=== PATIENT | female | born 1935 | race American Indian/Alaskan Native ===

== ENCOUNTER 2019-02-01 15:57 | Emergency (ER) | payer MEDICARE, OTHER ==
[2019-02-01 16:11] VITALS: BP 155/59
--- NOTE | 2019-02-01 17:04 | EDM.PDOC ---
ED HPI GENERAL MEDICAL PROBLEM - General Chief Complaint: Chest Pain Stated Complaint: [facility] Time Seen by Provider: 02/01/19 16:35 - History of Present Illness INITIAL COMMENTS - FREE TEXT/NARRATIVE: 83-year-old female brought into the emergency room by EMS with some chest complaints. Patient was seen at the [place] [facility] For routine follow-up and did mention she had some L arm discomfort after shoveling a bunch of snow over the last couple of days. They did an EKG and were concerned about this. And she was sent here she is pain-free when she gets here. The patient had her last cardiac stress test about 10 years ago. She exercises on a regular basis on a treadmill and tolerates this without to much difficulty. She takes a daily aspirin. Her EKG from the clinic was reviewed which shows of first-degree AV block no acute ischemia. She did receive nitroglycerin sublingually at the clinic which did help. Treatments [employer] [facility] [employer] [facility]: Reports: Aspirin, EKG, Nitroglycerin - Related Data Allergies Allergy/AdvReac Type Severity Reaction Status Date / Time penicillin Allergy Anaphylactic Verified 10/20/18 12:14 Shock [facility] Allergy Hives Uncoded 10/20/18 12:14 Home Meds: Home Meds Aspirin [Halfprin] 81 mg PO DAILY 07/27/15 [History] Cetirizine [ZyrTEC] 10 mg PO DAILY 02/01/19 [History] Clopidogrel [Plavix] 75 mg PO DAILY 02/01/19 [History] Gabapentin [Neurontin] 100 mg PO BID 02/01/19 [History] Glimepiride [Amaryl] 2 mg PO BID 02/01/19 [History] Glimepiride [Amaryl] 2 mg PO BID 02/01/19 [History] Ketorolac [Acular 0.5% Ophth Soln] 1 drop EYELF DAILY 02/01/19 [History] Levothyroxine [Synthroid] 50 mcg PO QAM 02/01/19 [History] Metoprolol Succinate [Toprol XL] 25 mg PO DAILY 02/01/19 [History] Ofloxacin [Floxin 0.3% Otic Soln] 1 drop EYELF QID 02/01/19 [History] Simvastatin 20 mg PO DAILY 02/01/19 [History] metFORMIN HCl [Metformin HCl] 500 mg PO QAM 02/01/19 [History] metFORMIN [Glucophage] 1,000 mg PO QPM 02/01/19 [History] prednisoLONE acetate [Pred Forte 1% Ophth Susp] 1 drop EYELF QID 02/01/19 [ History] Past Medical History HEENT History: Reports: Impaired Vision 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 Cardiovascular History: Reports: High Cholesterol, Hypertension, NH, Stents Respiratory History: Reports: Asthma Other Genitourinary History: cyst removed from ovary 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: Musculoskeletal History: Reports: Arthritis Endocrine/Metabolic History: Reports: Diabetes, Type II, Hypoparathyroidism, Osteoporosis - Past Surgical History HEENT Surgical History: Reports: Cataract Surgery GI Surgical History: Reports: Appendectomy Neurological Surgical History: Reports: Laminectomy Social & Family History - Tobacco Use Smoking Status *Q: Never Smoker - Caffeine Use Caffeine Use: Reports: Coffee - Recreational Drug Use Recreational Drug Use: No ED ROS GENERAL - Review of Systems Review Of Systems: See Below Constitutional: Reports: No Symptoms HEENT: Reports: No Symptoms Respiratory: Reports: No Symptoms Cardiovascular: Reports: Other (Left arm pain minimal chest pain intermittent chest tightness with the arm pain) Endocrine: Reports: No Symptoms GI/Abdominal: Reports: No Symptoms : Reports: No Symptoms Neurological: Reports: No Symptoms ED EXAM, GENERAL - Physical Exam Exam: See Below Exam Limited By: No Limitations General Appearance: Alert, No Apparent Distress, Other (Upon arrival to our emergency room she is pain-free) Head: Atraumatic, Normocephalic Neck: Normal Inspection, Supple, Non-Tender, Full Range of Motion Respiratory/Chest: No Respiratory Distress, Lungs Clear, Normal Breath Sounds, No Accessory Muscle Use, Chest Non-Tender Cardiovascular: Regular Rate, Rhythm, No Edema, No Murmur GI/Abdominal: Normal Bowel Sounds, Soft, Non-Tender Back Exam: Normal Inspection. No: CVA Tenderness (L), CVA Tenderness (R) Course - Vital Signs Last Recorded V/S: Last Vital Signs Temp 36.7 C 02/01/19 16:04 Pulse 56 L 02/01/19 16:04 Resp 13 02/01/19 16:04 BP 155/59 H 02/01/19 16:04 Pulse Ox 97 02/01/19 16:04 - Orders/Labs/Meds Orders: Active Orders 24 hr Category Date Time Status EKG Documentation Completion [RC] STAT Care 02/01/19 16:23 Active Labs: Laboratory Tests 02/01/19 02/01/19 02/01/19 Range/Units 16:41 16:41 16:41 WBC 9.81 (3.98-10.04) K/mm3 RBC 4.83 (3.98-5.22) M/mm3 Hgb 12.0 (11.2-15.7) gm/L Hct 38.1 (34.1-44.9) % MCV 78.9 L (79.4-94.8) fl MCH 24.8 L (25.6-32.2) pg MCHC 31.5 L (32.2-35.5) g/dl RDW Std Deviation 43.1 (36.4-46.3) fL Plt Count 292 (182-369) K/mm3 MPV 10.3 (9.4-12.3) fl Neutrophils % (Manual) 70 H (40-60) % Band Neutrophils % 1 (0-10) % Lymphocytes % (Manual) 27 (20-40) % Atypical Lymphs % 0 % Monocytes % (Manual) 0 L (2-10) % Eosinophils % (Manual) 2 (0.7-5.8) % Basophils % (Manual) 0 L (0.1-1.2) Platelet Estimate Adequate Poikilocytosis 1+ slight Ovalocytes 1+ slight RBC Morph Comment Not Reportable PT 10.5 (9.5-12.1) SECONDS INR 0.96 APTT 28 (24-31) SECONDS Sodium 142 (136-145) mEq/L Potassium 4.0 (3.5-5.1) mEq/L Chloride 103 (98-107) mEq/L Carbon Dioxide 28 (21-32) mEq/L Anion Gap 15.0 (5-15) BUN 13 (7-18) mg/dL Creatinine 0.8 (0.55-1.02) mg/dL Est Cr Clr Drug Dosing 42.14 mL/min Estimated GFR (MDRD) > 60 (>60) mL/min BUN/Creatinine Ratio 16.3 (14-18) Glucose 134 H (83-115) mg/dL Calcium 9.7 (8.5-10.1) mg/dL Total Bilirubin 0.3 (0.2-1.0) mg/dL AST 28 (15-37) U/L ALT 35 (14-59) U/L Alkaline Phosphatase 72 (46-116) U/L Troponin I < 0.017 (0.00-0.056) ng/mL Total Protein 7.2 (6.4-8.2) g/dl Albumin 3.6 (3.4-5.0) g/dl Globulin 3.6 gm/dL Albumin/Globulin Ratio 1.0 (1-2) 02/01/19 Range/Units 18:43 WBC (3.98-10.04) K/mm3 RBC (3.98-5.22) M/mm3 Hgb (11.2-15.7) gm/L Hct (34.1-44.9) % MCV (79.4-94.8) fl MCH (25.6-32.2) pg MCHC (32.2-35.5) g/dl RDW Std Deviation (36.4-46.3) fL Plt Count (182-369) K/mm3 MPV (9.4-12.3) fl Neutrophils % (Manual) (40-60) % Band Neutrophils % (0-10) % Lymphocytes % (Manual) (20-40) % Atypical Lymphs % % Monocytes % (Manual) (2-10) % Eosinophils % (Manual) (0.7-5.8) % Basophils % (Manual) (0.1-1.2) Platelet Estimate Poikilocytosis Ovalocytes RBC Morph Comment PT (9.5-12.1) SECONDS INR APTT (24-31) SECONDS Sodium (136-145) mEq/L Potassium (3.5-5.1) mEq/L Chloride (98-107) mEq/L Carbon Dioxide (21-32) mEq/L Anion Gap (5-15) BUN (7-18) mg/dL Creatinine (0.55-1.02) mg/dL Est Cr Clr Drug Dosing mL/min Estimated GFR (MDRD) (>60) mL/min BUN/Creatinine Ratio (14-18) Glucose (83-115) mg/dL Calcium (8.5-10.1) mg/dL Total Bilirubin (0.2-1.0) mg/dL AST (15-37) U/L ALT (14-59) U/L Alkaline Phosphatase (46-116) U/L Troponin I < 0.017 (0.00-0.056) ng/mL Total Protein (6.4-8.2) g/dl Albumin (3.4-5.0) g/dl Globulin gm/dL Albumin/Globulin Ratio (1-2) Departure - Departure Time of Disposition: 20:27 Disposition: Home, Self-Care 01 Clinical Impression: Chest pain Instructions: Nonspecific Chest Pain Referrals: PCP,None [Primary Care Provider] - Forms: ED Department Discharge Additional Instructions: Return to the emergency room with any questions problems worsening symptoms. Continue daily aspirin. Follow-up with a stress test is scheduled. Follow-up at the [place] [facility] 2-3 days after the stress test is done. - My Orders Last 24 Hours: My Active Orders 02/01/19 16:23 EKG Documentation Completion [RC] STAT - Assessment/Plan Last 24 Hours: My Active Orders 02/01/19 16:23 EKG Documentation Completion [RC] STAT
--- NOTE | 2019-02-01 17:16 | CR ---
Chest: Portable view of the chest was obtained. Comparison: Prior chest x-ray of 10/20/18. Heart size is normal. Tortuous thoracic aorta is seen. Lungs are clear with no acute parenchymal change. Bony structures are grossly intact. Impression: 1. Nothing acute is seen on portable chest x-ray. Diagnostic code #2
== END 2019-02-01 20:44 | disposition home or self-care (01) ==
LOC: JD.ED 15:57
DX: R07.9 Chest pain, unspecified (principal); I10 Essential (primary) hypertension; E78.00 Pure hypercholesterolemia, unspecified; E11.9 Type 2 diabetes mellitus without complications; E20.9 Hypoparathyroidism, unspecified; I25.2 Old myocardial infarction; J45.909 Unspecified asthma, uncomplicated; Z79.84 Long term (current) use of oral hypoglycemic drugs; Z79.899 Other long term (current) drug therapy; Z79.82 Long term (current) use of aspirin; Z88.0 Allergy status to penicillin; Z91.018 Allergy to other foods
CPT/HCPCS: 36415; 71045; 71045-26; 80053; 84484; 85007; 85027; 85610; 85730; 93005; 93010; 99284; 99285-25

== ENCOUNTER 2025-02-06 17:10 | Emergency (ER) | payer MEDICARE, OTHER ==
[2025-02-06 17:47] VITALS: PULSE 60
[2025-02-06 18:50] VITALS: BP 135/54
== END 2025-02-06 18:48 | disposition home or self-care (01) ==
LOC: JD.ED 17:10
DX: R22.41 Localized swelling, mass and lump, right lower limb (principal); E78.00 Pure hypercholesterolemia, unspecified; I10 Essential (primary) hypertension; I25.2 Old myocardial infarction; Z95.5 Presence of coronary angioplasty implant and graft; E11.9 Type 2 diabetes mellitus without complications; E03.9 Hypothyroidism, unspecified; Z88.0 Allergy status to penicillin; Z91.018 Allergy to other foods; Z79.82 Long term (current) use of aspirin; Z79.899 Other long term (current) drug therapy; Z79.02 Long term (current) use of antithrombotics/antiplatelets; Z79.890 Hormone replacement therapy; Z79.84 Long term (current) use of oral hypoglycemic drugs
CPT/HCPCS: 93971-26-RT; 93971-RT; 99283